=== PATIENT | male | born 1985 | race American Indian/Alaskan Native ===

== ENCOUNTER 2019-12-30 08:02 | Emergency (ER) | payer SELFPAY ==
[2019-12-30 08:08] VITALS: BP 120/77
--- NOTE | 2019-12-30 08:29 | Emergency Department Report ---
Chief Complaint: Urogenital-Male Stated Complaint: MOUTH NUMB/URINATION PAIN Time Seen by Provider: 12/30/19 08:25 - HPI History of Present Illness: 34-year-old -Armenian male presents to the emergency room complaining of painful urination x2 days and facial numbness times last night. Patient denies any slurred speech denies any trauma reports no memory loss no loss of words. Patient denies any change in vision no nausea no vomiting no headache. Patient denies any toothache dental problems nasal congestion runny nose or eye drooping. Patient reports he does not have a primary care provider. - Exam Vital Signs: Vital Signs 12/30/19 08:04 Temperature 98.0 F Pulse Rate 79 Respiratory 16 Rate Blood Pressure 120/77 O2 Sat by Pulse 100 Oximetry Physical Exam: Gen: alert oriented NAD Cardic: regular rate and rhythm no murmurs appreciated Resp: Clear to auscultation bilateral no wheezing no rales or rhonchi. Abdomen: Soft nontender nondistended normal bowel sounds. Mini neuro: Normal finger to nose exam, [id number] normal, Romberg neg, strengh 4/5 all extrimities, smells even light touch intact cranial nerve #5 intact alert and oriented time 3 Crainal nerve II-IIX intact, gait is normal MSE screening note: Focused history and physical exam performed. Due to findings the following was ordered: ED Disposition for MSE Disposition: MED SCREENING EXAM-LEFT Is pt being admited?: No Does the pt Need Aspirin: No Condition: Stable Additional Instructions: Follow-up at the [facility] for STD check follow-up with a primary care provider I have listed several below for your convenience. Referrals: JM STAPLETON MD [Staff Physician] - 3-5 Days [facility] [Outside] - 3-5 Days [facility] [Outside] - 3-5 Days [facility] [Provider Group] - 3-5 Days
== END 2019-12-30 08:52 | disposition left against medical advice (07) ==
LOC: ED 08:02
DX: R30.9 Painful micturition, unspecified (principal); R20.0 Anesthesia of skin
CPT/HCPCS: 99282

== ENCOUNTER 2020-05-12 23:14 | Emergency (ER) | payer SELFPAY ==
[2020-05-12 23:35] VITALS: BP 112/64
--- NOTE | 2020-05-13 00:35 | XRay Report ---
CLINICAL DATA: Dispocation, pain TECHNICAL DATA: AP internal, AP external, and Y views were obtained of the shoulder. FINDINGS: There is no acute fracture. The glenoid fossa humeral head articulation is normal. There is no acromi oclavicular joint widening or offset. The coracoclavicular distance is normal. There are no significa nt degenerative changes. IMPRESSION: No acute radiographic abnormality. Signer Name: Kai Flores MD Signed: 05/13/2020 12:30 AM Workstation Name: [id number]
[2020-05-13] MEDS ORDERED: predniSONE 20 MG TAB PO ONE (00:48)
[2020-05-13] MEDS ORDERED: ACETAMINOPHEN 500 MG TAB PO ONE (00:48)
[2020-05-13] MEDS ORDERED: IBUPROFEN 600 MG TAB PO ONE (00:48)
--- NOTE | 2020-05-13 01:41 | Emergency Department Report ---
ED Extremity Problem HPI - General Chief complaint: Extremity Injury, Upper Stated complaint: LT SHOULDER DISLOCATION Source: patient Mode of arrival: Ambulatory Limitations: No Limitations - History of Present Illness Initial comments: Patient is a 34-year-old -Gabonese male with a history of chronic left shoulder pain due to chronic recurrent dislocations presents to the ED with complaint of acute exacerbation of his chronic left shoulder pain for the last 3 days. Patient states that he suspects that he may have dislocated this left shoulder 3 days ago and it reset itself back to the joint but states that the pain has been persistent and worse such that he is unable to sleep or perform any active range of motion of the left arm. Patient states that he has been taking ibuprofen 800 mg with no relief. Patient also states that he took Aleve 500 mg tablets with no relief. Patient denies fall, dizziness, traumatic injury, numbness and tingling or weakness of left arm, chest pain or shortness of breath, or back pain. MD Complaint: extremity pain (left shoulder pain), joint paint (recurrent left shoulder pain) -: Gradual, year(s) (>5 years) Location: left, upper extremity (shoulder) History of Same: Yes (chronic recurrent left shoulder dislocations) -: Yes arthralgia (left shoulder), No fever, No associated dyspnea, No associated chest pain Severity scale (0 -10): 7 Quality: aching, sharp Consistency: constant Improves with: nothing Worsens with: weight bearing, exertion, palpation Associated Symptoms: denies other symptoms, arthralgias (left shoulder) - Related Data Previous Rx's Medication Instructions Recorded Last Taken Type cephALEXin [Keflex] 1 cap PO TID #15 capsule 05/31/13 Unknown Rx traMADoL [Ultram 50 MG tab] 1 tab PO Q6HR PRN #20 tablet 05/31/13 Unknown Rx Baclofen 20 mg PO Q8H PRN #24 tablet 05/13/20 Unknown Rx predniSONE [Deltasone] 40 mg PO QDAY #12 tab 05/13/20 Unknown Rx traMADoL [Ultram] 50 mg PO Q6HR PRN #12 tablet 05/13/20 Unknown Rx Allergies Allergy/AdvReac Type Severity Reaction Status Date / Time No Known Allergies Allergy Unverified 05/31/13 22:12 ED Review of Systems ROS: Stated complaint: LT SHOULDER DISLOCATION Other details as noted in HPI Constitutional: denies: chills, fever Eyes: denies: eye pain, eye discharge, vision change ENT: denies: ear pain, throat pain Respiratory: denies: cough, shortness of breath, wheezing Cardiovascular: denies: chest pain, palpitations Endocrine: no symptoms reported Gastrointestinal: denies: abdominal pain, nausea, diarrhea Genitourinary: denies: urgency, dysuria Musculoskeletal: arthralgia (left shoulder pain), myalgia. denies: back pain, joint swelling Skin: denies: rash, lesions Neurological: denies: headache, weakness, paresthesias Psychiatric: denies: anxiety, depression Hematological/Lymphatic: denies: easy bleeding, easy bruising ED Past Medical Hx - Social History Smoking Status: Current Every Day Smoker Substance Use Type: None - Medications Home Medications: Home Medications Medication Instructions Recorded Confirmed Last Taken Type cephALEXin [Keflex] 1 cap PO TID #15 capsule 05/31/13 Unknown Rx traMADoL [Ultram 50 MG tab] 1 tab PO Q6HR PRN #20 tablet 05/31/13 Unknown Rx Baclofen 20 mg PO Q8H PRN #24 tablet 05/13/20 Unknown Rx predniSONE [Deltasone] 40 mg PO QDAY #12 tab 05/13/20 Unknown Rx traMADoL [Ultram] 50 mg PO Q6HR PRN #12 tablet 05/13/20 Unknown Rx ED Physical Exam - General Limitations: No Limitations General appearance: alert, in no apparent distress - Head Head exam: Present: atraumatic, normocephalic, normal inspection - Eye Eye exam: Present: normal appearance, PERRL, EOMI Pupils: Present: normal accommodation - ENT ENT exam: Present: normal exam, normal orophraynx, mucous membranes moist, TM's normal bilaterally, normal external ear exam - Neck Neck exam: Present: normal inspection, full ROM - Respiratory Respiratory exam: Present: normal lung sounds bilaterally. Absent: respiratory distress, wheezes, rales, rhonchi, chest wall tenderness, decreased breath sounds - Cardiovascular Cardiovascular Exam: Present: regular rate, normal rhythm, normal heart sounds. Absent: systolic murmur, diastolic murmur, rubs, gallop - GI/Abdominal GI/Abdominal exam: Present: soft, normal bowel sounds. Absent: tenderness, guarding, hyperactive bowel sounds, hypoactive bowel sounds - Extremities Exam Extremities exam: Present: normal inspection, tenderness (Palpable left shoulder tenderness with limited range of motion due to pain). Absent: full ROM (Limited range of motion of left shoulder due to pain), normal capillary refill, joint swelling, calf tenderness - Back Exam Back exam: Present: normal inspection, full ROM. Absent: tenderness, CVA tenderness (L), muscle spasm, paraspinal tenderness, vertebral tenderness - Neurological Exam Neurological exam: Present: alert, oriented X3, CN II-XII intact, normal gait, reflexes normal - Psychiatric Psychiatric exam: Present: normal affect, normal mood - Skin Skin exam: Present: warm, dry, intact, normal color. Absent: rash ED Course Vital Signs 05/12/20 23:34 Temperature 97.9 F Pulse Rate 84 Respiratory 18 Rate Blood Pressure 112/64 O2 Sat by Pulse 96 Oximetry ED Medical Decision Making - Radiology Data Radiology results: image reviewed Findings [facility] [address] [place] [address] XRay Report Signed Patient: MARIBETH BOND MR#: [id number] : 1985 Acct:[id number] Age/Sex: 34 / M ADM Date: 05/12/20 Loc: ED Attending Dr: Ordering Physician: VIPUL DAVILA III, MD Date of Service: 05/13/20 Procedure(s): XR shoulder 2+V LT Accession Number(s): [id number] cc: VIPUL DAVILA III, MD Fluoro Time In Minutes: CLINICAL DATA: Dispocation, pain TECHNICAL DATA: AP internal, AP external, and Y views were obtained of the shoulder. FINDINGS: There is no acute fracture. The glenoid fossa humeral head articulation is normal. There is no acromioclavicular joint widening or offset. The coracoclavicular distance is normal. There are no significant degenerative changes. IMPRESSION: No acute radiographic abnormality. Signer Name: Kai Flores MD Signed: 05/13/2020 12:30 AM Workstation Name: [id number] Transcribed By: RUBEN Dictated By: Kai Flores MD Electronically Authenticated By: Kai Flores MD Signed Date/Time: 05/13/2029 DD/ TD/TT: - Medical Decision Making This is a 34-year-old -Gabonese male with a history of chronic left shoulder pain due to chronic recurrent dislocations presents to the ED with complaint of acute exacerbation of his chronic left shoulder pain for the last 3 days. Patient states that he suspects that he may have dislocated this left shoulder 3 days ago and it reset itself back to the joint but states that the pain has been persistent and worse such that he is unable to sleep or perform any active range of motion of the left arm. Patient states that he has been taking ibuprofen 800 mg with no relief. Patient also states that he took Aleve 500 mg tablets with no relief. In the ED, patient is alert and oriented x3 and is not in distress but appears to be in pain. Patient was treated for pain in the ED. Left shoulder x-ray shows no acute fractures or subluxations. Patient really has the left shoulder immobilized in an arm sling, therefore the patient was discharged home on pain medications and muscle relaxants and advised to follow-up with orthopedic surgeon data communications technician Dr. Ibarra for follow-up and further evaluation. Patient was advised to contact Dr. Ibarra's office first thing in the morning on May 13, 2020 to schedule a follow-up appointment. Patient was also advised return to the ED immediately if symptoms get worse. - Differential Diagnosis Shoulder dislocation; shoulder sprain; muscle strain; shoulder fracture Critical care attestation.: If time is entered above; I have spent that time in minutes in the direct care of this critically ill patient, excluding procedure time. ED Disposition Clinical Impression: Chronic pain in left shoulder Sprain of left shoulder Qualifiers: Encounter type: initial encounter Shoulder sprain type: unspecified sprain Qualified Code(s): S43.402A - Unspecified sprain of left shoulder joint, initial encounter Disposition: DC- TO HOME OR SELFCARE Is pt being admited?: No Does the pt Need Aspirin: No Condition: Stable Instructions: Shoulder Sprain (ED), Chronic Pain (ED), Tendinitis (ED) Additional Instructions: X-ray shows no acute fractures or subluxations. Therefore take medication with food, drink plenty of fluids and follow-up with Dr. Ibarra the orthopedic surgeon in 3 to 5 days for evaluation[address] Contact Dr. Ibarra's office first thing this morning May 13, 2020 to schedule a follow-up appointment. Return to the ED immediately if symptoms get worse. Prescriptions: Baclofen 20 mg PO Q8H PRN #24 tablet PRN Reason: Muscle Spasm predniSONE [Deltasone] 40 mg PO QDAY #12 tab traMADoL [Ultram] 50 mg PO Q6HR PRN #12 tablet PRN Reason: Pain Referrals: DIONNE IBARRA MD [Staff Physician] - [facility] Time of Disposition: 01:45 Print Language: SPANISH
== END 2020-05-13 02:40 | disposition home or self-care (01) ==
LOC: ED 23:14
DX: S43.402A Unspecified sprain of left shoulder joint, initial encounter (principal); G89.29 Other chronic pain; F17.200 Nicotine dependence, unspecified, uncomplicated; Z79.899 Other long term (current) drug therapy; X58.XXXA Exposure to other specified factors, initial encounter; Y93.89 Activity, other specified; Y92.89 Other specified places as the place of occurrence of the external cause; Y99.8 Other external cause status
CPT/HCPCS: 73030; 99283; J7512